=== PATIENT | female | born 1975 | race Caucasian/White ===

== ENCOUNTER → 2019-02-02 | Outpatient (CLI) | payer BC | LOC: LAB 08:44 → RAD 08:44 | DX: I10 Essential (primary) hypertension (principal); R51 Headache ==

== ENCOUNTER → 2022-04-28 | Outpatient (CLI) | payer BC ==
[~2022-04-28] MED LIST: HYDROCHLOROTH12.5 M1 PO; ZYRTEC ALLERGY10 MG PO
== END ==
LOC: LAB 11:14
DX: R11.2 Nausea with vomiting, unspecified (principal); Z20.822 Contact with and (suspected) exposure to COVID-19

== ENCOUNTER → 2022-04-30 | Outpatient (CLI) | payer BC ==
[2022-04-30 09:51] VITALS: BP 159/98
[2022-04-30 10:17] LABS: HEMATOCRIT 50.9 % (37.0-47.0); HEMOGLOBIN 18.5 g/dL (12.5-16.0); MEAN CELL VOLUME 83 fl (78-100); MEAN CORPUSCULAR HEMOGLOBIN 30 pg (27-31); MEAN CORPUSCULAR HGB CONC 36 g/dL (33-37); MEAN PLATELET VOLUME 11.5 fl (7.4-10.4); PLATELET COUNT 374 K/mm3 (130-400); RED BLOOD COUNT 6.14 M/mm3 (4.10-5.30); RED CELL DISTRIBUTION WIDTH 11.7 % (11.5-14.5); WHITE BLOOD COUNT 19.7 K/mm3 (4.8-10.8)
[2022-04-30 10:22] LABS: CALCIUM 9.5 mg/dL (8.3-10.5)
[2022-04-30 10:26] LABS: POTASSIUM 2.8 mmol/L (3.5-5.1)
--- NOTE | 2022-04-30 10:30 | NUR ---
Dr. Maza is sending this patient to ED for further tx. WBC 19.7, K+ 2.8 and Serum BG 490. Findings reported to Dr. Maza and Aye Arndt APRN. Patient remains in Exam room 5, fluids infusing. Report given to ED Keren alvarado RN.
[2022-04-30 10:53] LABS: LYMPHOCYTE 13 % (20-51); MONOCYTE 8 % (3-10); NEUTROPHILS 79 % (42-75)
[2022-04-30 11:47] LABS: ALBUMIN 4.6 g/dL (3.5-5.0)
[2022-04-30 11:50] LABS: TOTAL PROTEIN 8.5 g/dL (6.4-8.3)
== END ==
LOC: AMSURD 09:22
PROVIDERS: Family Medicine
DX: R10.9 Unspecified abdominal pain (principal); B34.9 Viral infection, unspecified; R11.0 Nausea; R14.0 Abdominal distension (gaseous)
CPT/HCPCS: J7030